=== PATIENT | male | born 1955 | race Caucasian/White ===

== ENCOUNTER 2017-01-10 10:26 | Day surgery (SDC) | payer OTHER ==
[~2017-01-10 10:26] MED LIST: BUPIVACAINE/EPI 0.25% 30 ML SDV ONE; LIDOCAINE 2% JELLY 20 ML (UROJECT) ONE; cefOXitin SODIUM 1 GM in D5W 50 ML IV ONE
[2017-01-10] MEDS ORDERED: LR 1,000 ML IV ONE (11:28)
[2017-01-10] MEDS ORDERED: LIDOCAINE 1% 2 ML INJ ONE (11:33)
[2017-01-10] MEDS ORDERED: MIDAZOLAM 2 MG/2 ML VIAL ONE (11:50)
[2017-01-10] MEDS ORDERED: PROPOFOL/EMULSION 500 MG/50 ML BOTTLE IV ONE (12:58)
[2017-01-10] MEDS ORDERED: PROPOFOL 200 MG/20 ML VIAL ONE (12:58)
[2017-01-10] MEDS ORDERED: fentaNYL 100 MCG/2 ML INJ ONE ×2 (12:58)
--- NOTE | 2017-01-10 14:53 | GOP ---
[f rep st] OPERATIVE REPORT DATE OF OPERATION: 01/10/2017 SURGEON: Josh Rodríguez MD CHOCOLATE MOLDER: None. ANESTHESIA: General endotracheal. ANESTHESIOLOGIST: Venita Rosa MD PREOPERATIVE DIAGNOSIS: Rectal mass versus hemorrhoid. POSTOPERATIVE DIAGNOSIS: Rectal mass versus hemorrhoid. PROCEDURE PERFORMED: Examination under anesthesia with resection of rectal mass. FINDINGS: Pedunculated mass identified previously in clinic, successfully excised down to the level of the perirectal tissues. Anoderm was then successfully closed in a running fashion with 3-0 Vicr yl. SPECIMENS: Rectal mass. ESTIMATED BLOOD LOSS: 5 cc. DESCRIPTION OF PROCEDURE: The patient was greeted in the preoperative suite, and once again, risks, benefits, and alternatives were discussed. Consent was signed. He was then brought back to the op erative suite, placed on the OR table in a supine position. After all anesthesia machines, includin g SCDs, were on and functioning, [employer] time-out was performed. Anesthesia was t hen induced without incident per Dr. Roas. After successfully placing the patient in low lithotom y position with all pressure points appropriately padded, his perirectal area was then prepped and d raped in typical sterile fashion. I then serially dilated with my finger, well lubricated and then placed the Fansler retractor. I identified the pedunculated mass in the right anterior position as it was in the clinic. I identified no other suspicious masses. I grasped the mass with an Allis cl amp and successfully amputated it from the underlying tissues with a 15-blade scalpel. After this w as done, I obtained hemostasis with electrocautery. After hemostasis was noted to be excellent, I c losed the anoderm over it in a running fashion with 3-0 Vicryl stitch. I used 0.25% Marcaine with e pinephrine to create a field block. After this, I did place a piece of Gelfoam and lidocaine within the patient's rectum to help with residual hemostasis after the procedure. The patient was then ex tubated in the operative suite and taken to the PACU in satisfactory condition. DRAINS: None. COUNTS: All counts were reported as correct x2. /[id number]/MODL
== END 2017-01-10 15:30 | disposition home or self-care (01) ==
LOC: FSGY 10:26
PROVIDERS: ATTEND Surgery
PROC: 0DBP7ZZ Excision of Rectum, Via Natural or Artificial Opening (ICD-10-PCS; principal; 2017-01-10 12:55)
DX: K64.4 Residual hemorrhoidal skin tags (principal)
CPT/HCPCS: J0697; J2250; J2704; J3010

== ENCOUNTER 2017-04-18 22:20 | Emergency (ER) | payer OTHER ==
[2017-04-18 22:25] VITALS: BP 121/78; PULSE 77; RESP 16; TEMP 98.6; O2SAT 94
--- NOTE | 2017-04-18 22:51 | EDPHY ---
H & P Stated Complaint: c/o pain in R arm x 2 days HPI/ROS: CHIEF COMPLAINT: Right shoulder and arm pit pain HISTORY OF PRESENT ILLNESS: Patient complains of awaking Friday morning with right shoulder and right axillary pain. This was mild to moderate pain. He had been moving boxes the day before but denies any sudden onset of pain on the day of moving the boxes. The pain is [id number]. It has been constant duration. It does not radiate. It is not associated with any erythema, edema, pain of the remainder extremity. There is no sensory or motor changes. He has no complaints elsewhere. He has not attempted any medications or modalities for treatment at home. No other associated complaints or modifying factors. REVIEW OF SYSTEMS: Ten systems reviewed and are negative unless otherwise noted in the HPI EXAMINATION General Appearance: Alert, no distress Cardiovascular: Pulses normal throughout. Symmetric radial pulses are 2+. Brisk cap refill Neurological: A&O, sensory symmetric, strength symmetric at 5/5 in bilateral upper extremities. Skin: Warm and dry, no rash. No erythema. No edema. Extremities: Tenderness to palpation of the right shoulder involving the deltoid insertion of the infraspinatus and supraspinatus. Worse with abduction. No apprehension. No instability. No evidence of biceps tear. Range of motion is intact but painful. Reproducible pain with palpation. Neurovascular intact distally. There is no evidence of DVT by examination. Psychiatric: Mood and affect normal DIFFERENTIAL DIAGNOSES: Including but not limited to rotator cuff sprain, rotator cuff strain, rotator cuff tear, dislocation, lymphadenopathy, DVT, biceps tendinitis, brachial plexus injury MDM: 10:45 p.m. Right shoulder and right axillary pain that is reproducible with movement, specifically movements of the rotator cuff. No evidence of DVT by history examination. No sensory or motor deficits. Treat symptomatically for rotator cuff injury. Follow up with primary care physician Orthopedics for definitive care. Return here for worsening pain, erythema, edema, warmth, sensory or motor changes. Patient's spouse are comfortable with this plan. He is discharged home stable condition. ED Precautions: Worsening pain. Erythema, edema, cyanosis, pallor, paresthesia or anesthesia. SUPERVISION: This patient was independently evaluated without direct examination by the attending physician. Case was discussed with attending physician. Source: Patient, Family Exam Limitations: No limitations - Medical/Surgical History Hx Asthma: No Hx Chronic Respiratory Disease: No Hx Diabetes: No Hx Cardiac Disease: No Hx Renal Disease: No Hx Cirrhosis: No Hx Alcoholism: Yes Hx HIV/AIDS: No Hx Splenectomy or Spleen Trauma: No Other PMH: alcoholism, back pain - Social History Smoking Status: Former smoker Constitutional: Initial Vital Signs Temperature (C) 98.6 F 04/18/17 22:23 Heart Rate 77 04/18/17 22:23 Respiratory Rate 16 04/18/17 22:23 Blood Pressure 121/78 H 04/18/17 22:23 O2 Sat (%) 94 04/18/17 22:23 O2 Delivery Mode Room Air Allergies/Adverse Reactions: alcohol based drugs Allergy (Uncoded 01/08/17 18:04) Other-Enter Comments all opiates Allergy (Uncoded 01/08/17 18:04) makes him act bad Home Medications: Medication Instructions Recorded NK [No Known Home Meds] 04/18/17 Departure - Departure Disposition: Home, Routine, Self-Care Clinical Impression: Rotator cuff injury Qualifiers: Encounter type: initial encounter Laterality: right Qualified Code(s): S46.001A - Unspecified injury of muscle(s) and tendon(s) of the rotator cuff of right shoulder, initial encounter Condition: Good Instructions: Rotator Cuff Injury (ED), Tendinitis (ED) Additional Instructions: 1. Ifov-ben-[id number] anti-inflammatories as discussed for 5 days 2. Warmth to the area as tolerated 3. Follow up with primary care physician and orthopedist for definitive care 4. Return here for any new warmth, erythema, edema, sensory or motor changes Referrals: Jay Brady MD [Primary Care Provider] - As per Instructions Werner Villa MD [Medical Doctor] - As per Instructions
== END 2017-04-18 23:19 | disposition home or self-care (01) ==
DX: S46.001A Unspecified injury of muscle(s) and tendon(s) of the rotator cuff of right shoulder, initial encounter (principal); Z87.891 Personal history of nicotine dependence; X58.XXXA Exposure to other specified factors, initial encounter